=== PATIENT | female | born 1955 | race Caucasian/White ===

== ENCOUNTER 2020-11-12 10:30 | Outpatient (REF) | payer BC, SELFPAY ==
[2020-11-12 14:16] LABS: Anion Gap 7.5 mmol/L (3-11); BUN 23 mg/dL (7-18); CO2 29.5 mmol/L (21.0-32.0); CREATININE 0.8 mg/dL (0.55-1.02); Calcium 7.9 mg/dL (8.5-10.1); Chloride 103 mmol/L (98-107); Glucose 99 mg/dL (74-106); Potassium 4.8 mmol/L (3.5-5.1); Sodium 140 mmol/L (136-145)
[2020-11-13 11:56] LABS: Hepatitis C Ab w Rflx HCV PCR Negative (Negative)
== END 2020-11-12 10:31 | disposition home or self-care (01) ==
LOC: NCHCN 10:30
PROVIDERS: PCP Nurse Practitioner Family; Visit Provider Nurse Practitioner Family
DX: Z00.00 Encounter for general adult medical examination without abnormal findings (principal); Z11.59 Encounter for screening for other viral diseases
CPT/HCPCS: 80048; 86803

== ENCOUNTER 2020-11-24 11:33 | Outpatient (REF) | payer BC, SELFPAY ==
[2020-11-24 21:29] LABS: Albumin 3.7 g/dL (3.4-5.0); Calcium 8.9 mg/dL (8.5-10.1)
== END 2020-11-24 11:34 | disposition home or self-care (01) ==
LOC: NCHCN 11:33
PROVIDERS: PCP Nurse Practitioner Family; Visit Provider Nurse Practitioner Family
DX: M85.80 Other specified disorders of bone density and structure, unspecified site (principal)
CPT/HCPCS: 82040; 82310

== ENCOUNTER 2021-07-28 17:42 | Outpatient (REF) | payer BC, SELFPAY ==
[2021-07-28 22:15] LABS: Anion Gap 8.1 mmol/L (3-11); BUN 22 mg/dL (7-18); CO2 27.9 mmol/L (21.0-32.0); CREATININE 0.9 mg/dL (0.55-1.02); Calcium 8.8 mg/dL (8.5-10.1); Chloride 103 mmol/L (98-107); Glucose 103 mg/dL (74-106); Sodium 139 mmol/L (136-145)
[2021-07-29 05:44] LABS: Vitamin D 25 Total 50.3 ng/mL (30-100)
[2021-07-29 09:09] LABS: Calculated LDL 98 mg/dL (<100); Cholesterol 204 mg/dL (<200); HDL Cholesterol 92 mg/dL (40-60); Triglyceride 74 mg/dL (<150)
== END 2021-07-28 17:43 | disposition home or self-care (01) ==
LOC: NCHCN 17:42
PROVIDERS: PCP Nurse Practitioner Family; Visit Provider Family Medicine
DX: Z00.00 Encounter for general adult medical examination without abnormal findings (principal); M81.0 Age-related osteoporosis without current pathological fracture
CPT/HCPCS: 80048; 80061; 82306

== ENCOUNTER 2024-12-26 16:52 | Outpatient (REF) | payer MEDICARE, SELFPAY ==
[2024-12-26 21:02] LABS: HCT 39.0 % (36.0-46.0); HGB 13.3 g/dL (11.2-15.7); MCH 33.2 pg (27.0-33.0); MCHC 34.1 % (32.0-36.0); MCV 97 fL (80-95); MPV 10.1 fL (8.0-11.0); Platelet Count 342 10^3/uL (130-400); RBC 4.01 10^6/uL (3.93-5.22); RDW 11.4 % (11.7-14.6); RDW-SD 41.2 fL; WBC 6.84 10^3/uL (4.4-10.8)
[2024-12-26 21:10] LABS: ALT 25 U/L (14-59); AST 23 U/L (15-37); Albumin 3.9 g/dL (3.4-5.0); Alkaline Phosphatase 47 U/L (46-116); Anion Gap 4.4 mmol/L (3-11); BUN 20 mg/dL (7-18); Bilirubin, Total 0.3 mg/dL (0.2-1.0); CO2 33.6 mmol/L (21.0-32.0); Calcium 8.8 mg/dL (8.5-10.1); Chloride 103 mmol/L (98-107); Estimated GFR 92.98 (mL/min/1.73m2); Glucose 128 mg/dL (74-106); Potassium 4.1 mmol/L (3.5-5.1); Sodium 141 mmol/L (136-145); Total Protein 6.7 g/dL (6.4-8.2)
== END 2024-12-26 16:53 | disposition home or self-care (01) ==
LOC: NCHCN 16:52
PROVIDERS: PCP Nurse Practitioner Family; Visit Provider Family Medicine
DX: Z87.898 Personal history of other specified conditions (principal)
CPT/HCPCS: 80053; 85027

== ENCOUNTER 2024-12-30 16:30 | Outpatient (REF) | payer MEDICARE, SELFPAY ==
[2025-01-01 10:52] LABS: Lyme Ab w Rflx to Lyme Confirm Negative (Negative)
== END 2024-12-30 16:31 | disposition home or self-care (01) ==
LOC: NCHCN 16:30
PROVIDERS: PCP Nurse Practitioner Family; Visit Provider Family Medicine
DX: T14.90XA Injury, unspecified, initial encounter (principal); W57.XXXA Bitten or stung by nonvenomous insect and other nonvenomous arthropods, initial encounter
CPT/HCPCS: 86618